=== PATIENT | female | born 1955 | race Caucasian/White ===

== ENCOUNTER 2018-01-16 06:07 | Day surgery (SDC) | payer BC ==
[2018-01-16] MEDS ORDERED: ROCURONIUM 50 MG INJ ×2 (07:00→08:01)
[2018-01-16] MEDS ORDERED: CLINDAMYCIN 900 MG/D5W (PMX) 50 ML IVPB (07:30)
[2018-01-16] MEDS ORDERED: GLYCOPYRROLATE 0.4 MG INJ (08:01)
[2018-01-16] MEDS ORDERED: ROPIVACAINE 0.5 % 30 ML VIAL (08:01)
[2018-01-16] MEDS ORDERED: FENTAnyl 50 MCG/ML VIAL (08:01)
[2018-01-16] MEDS ORDERED: ONDANSETRON 4 MG INJ (08:01)
[2018-01-16] MEDS ORDERED: NEOSTIGMINE 3 MG/3 ML SYRINGE (08:01)
[2018-01-16] MEDS ORDERED: CEFAZOLIN 1 GM INJ (08:01)
[2018-01-16] MEDS ORDERED: MIDAZOLAM 1 MG/ML 2 ML INJ (08:01)
[2018-01-16] MEDS ORDERED: DEXAMETHASONE 4 MG/ML 1 ML INJ (08:01)
[2018-01-16] MEDS ORDERED: PROPOFOL 20 ML (08:01)
[2018-01-16] MEDS ORDERED: LABETALOL HCL 20MG INJ (08:31)
[2018-01-16] MEDS ORDERED: ESMOLOL 10 ML (10:19)
[2018-01-16] MEDS ORDERED: ALBUTEROL 0.083% (NEB) 2.5 MG/3 ML AMP HHN ×2 (11:30)
[2018-01-16] MEDS ORDERED: MEPERIDINE 25 MG INJ IV ×2 (11:30)
[2018-01-16] MEDS ORDERED: DIPHENHYDRAMINE 50 MG INJ IV ×2 (11:30)
[2018-01-16] MEDS ORDERED: TRIMETHOBENZAMIDE 100 MG/ML VIAL IM ×2 (11:30)
[2018-01-16] MEDS ORDERED: HYDROmorphONE (0.2 MG/ML) 10ML SYG IV ×6 (11:30)
[2018-01-16] MEDS ORDERED: LABETALOL HCL 20MG INJ IV ×2 (11:30)
[2018-01-16] MEDS ORDERED: MIDAZOLAM 1 MG/ML 2 ML INJ IV ×2 (11:30)
[2018-01-16] MEDS ORDERED: EPHEDrine SULFATE 50 MG/5 ML SYG IV ×2 (11:30)
[2018-01-16] MEDS ORDERED: IPRATROPIUM (NEB) 0.5 MG/2.5 ML AMP HHN ×2 (11:30)
[2018-01-16] MEDS ORDERED: hydrALAzine 20 MG INJ IV ×2 (11:30)
[2018-01-16] MEDS ORDERED: FENTAnyl 50 MCG/ML VIAL IV ×6 (11:30)
[2018-01-16] MEDS ORDERED: ONDANSETRON 4 MG INJ IV ×2 (11:30)
[2018-01-16] MEDS ORDERED: OXYCODONE/ACETAMINOPHEN (5/325) TAB PO ×4 (11:30)
[2018-01-16] MEDS ORDERED: SUGAMMADEX SODIUM 200 MG/2 ML VIAL IV (11:41)
== END 2018-01-16 14:05 | disposition home or self-care (01) ==
LOC: SDS 06:07
DX: M75.101 Unspecified rotator cuff tear or rupture of right shoulder, not specified as traumatic (principal); E11.9 Type 2 diabetes mellitus without complications; I10 Essential (primary) hypertension
CPT/HCPCS: 29827; 71045; 82962